=== PATIENT | female | born 1940 | race Hispanic/Latino ===

== ENCOUNTER 2017-10-18 12:22 | Emergency (ER) | payer MEDICARE, OTHER ==
[~2017-10-18] VITALS: Ht 157.5 cm; Wt 67.6 kg
[2017-10-18] MEDS ORDERED: HYDROCODONE/APAP 5MG-325MG TAB PO ONE (13:30)
--- NOTE | 2017-10-18 15:14 | Diagnostic Imaging Report ---
PROCEDURE:X-RAY PELVIS, AP VIEW COMPARISON:None. INDICATIONS:HIP PAIN FINDINGS: There are no fractures, dislocations, lytic or blastic lesions. Degenerative changes of the lower lumbar spine, hip and SI joints. The soft-tissues are unremarkable. CONCLUSION: No acute fracture or dislocation of the pelvis. Degenerative changes. Dictated by: Gera Guo M.D. on 10/18/2017 at 15:15 Electronically approved by: Gera Guo M.D. on 10/18/2017 at 15:15
--- NOTE | 2017-10-18 15:15 | Diagnostic Imaging Report ---
PROCEDURE:HIP RIGHT 2-3 VW (+/- PELVIS) COMPARISON:None. INDICATIONS:RIGHT HIP PAIN FINDINGS: See conclusion. CONCLUSION: No acute fracture or dislocation of the right hip. Degenerative changes. Dictated by: Gera Guo M.D. on 10/18/2017 at 15:17 Electronically approved by: Gera Guo M.D. on 10/18/2017 at 15:17
[2017-10-18 16:41] VITALS: BP 122/66
== END 2017-10-18 16:42 | disposition home or self-care (01) ==
LOC: ER 12:22
DX: M54.5 Low back pain (principal); M25.551 Pain in right hip; W18.39XA Other fall on same level, initial encounter; E11.9 Type 2 diabetes mellitus without complications; E03.9 Hypothyroidism, unspecified
CPT/HCPCS: 72170; 99283

== ENCOUNTER 2019-11-24 09:09 | Inpatient (IN) | payer MEDICARE, OTHER ==
[~2019-11-24] VITALS: Ht 157.5 cm; Wt 64.9 kg
--- OUTSIDE RECORDS SUMMARY | 2019-11-24 09:11 | XMS REPORT | Continuity of Care Document ---
Author Author [facility] Organization [facility] Address [address] [place] [address] Phone Unavailable Care Team Providers Care Mobile Phlebotomist Name Role Phone KIKI AGUERO MD PCP Chinedu MCKENZIE Unavailable Payers Payer Name Policy Type Policy Number Effective Date Expiration Date Rosangela Chatterjee Pos [id number] 2009 00:00:00 [facility] Problems This patient has no known problems. Allergies, Adverse Reactions, Alerts Allergy Name Allergy Type Status Severity Reaction(s) Onset Date Inacti ve Date Treating Clinician Comments Source IODINE Allergy to Substance Active 2017-10-18 00:00:00 [facility] Medications This patient has no known medications. Procedures This patient has no known procedures. Encounters Start Date/Time End Date/Time Encounter Type Admission Type [facility] Care Department Encounter ID Source 2017-10-18 12:22:00 2017-10-18 16:42:00 Departed Emergency Room [address] [facility] [id number] [facility] Results Test Description Test Time Test Comments Results Result Comments Source PELVIS AP 1-2 VIEWS [facility] [address] [place], [place] [address] Patient Name: ROBY SANDOVAL MR #: [id number] : 1940 Age/Sex: 77/F Req #: [id number] Adm Physician: Ordered by: MARITZA BEACH BUSINESS APPLICATIONS SPECIALIST Report #: [id number] Location: ER Room/Bed: Procedure: DX/PELVIS AP 1-2 VIEWS Exam Date: Exam Time: REPORT STATUS: Signed PROCEDURE: X-RAY PELVIS, AP VIEW COMPARISON: None. INDICATIONS: HIP PAIN FINDINGS: There are no fractures, dislocations, lytic or blastic lesions. Degenerative changes of the lower lumbar spine, hip and SI joints. The soft-tissues are unremarkable. CONCLUSION: No acute fracture or dislocation of the pelvis. Degenerative changes. Dictated by: Gera Jarvis M.D. on 10/18/2017 at 15:15 Electronically approved by: Gera Jarvis M.D. on 10/18/2017 at 15:15 Dictated By: GERA JARVIS MD 14 Transcribed By: SOUTH on 10/18/17 151 COPY TO: MARITZA BEACH BUSINESS APPLICATIONS SPECIALIST HIP RIGHT 2-3 VW (+/- PELVIS) [place] [address] Patient Name: ROBY SANDOVAL MR #: [id number] : 1940 Age/Sex: 77/F Req #: [id number] Adm Physician: Ordered by: MARITZA BEACH BUSINESS APPLICATIONS SPECIALIST Report #: [id number] Location: ER Room/Bed: Procedure: DX/HIP RIGHT 2-3 VW (+/- PELVIS) Exam Date: Exam Time: REPORT STATUS: Signed PROCEDURE: HIP RIGHT 2-3 VW (+/- PELVIS) COMPARISON: None. INDICATIONS: RIGHT HIP PAIN FINDINGS: See conclusion. CONCLUSION: No acute fracture or dislocation of the right hip. Degenerative changes. Dictated by: Gera Jarvis M.D. on 10/18/2017 at 15:17 Electronically approved by: Gera Jarvis M.D. on 10/18/2017 at 15:17 Dictated By: GERA JARVIS MD 1517 Transcribed By: SOUTH on 10/18/17 1517 COPY TO: MARITZA BEACH NP
[2019-11-24] MEDS ORDERED: SODIUM CHLORIDE 0.9% 1000ML 1,000 ML IV STA (09:22)
[2019-11-24] MEDS ORDERED: ONDANSETRON HCL INJ 2MG/ML 2ML 2 MG/ML VIAL IV ONE (09:22)
[2019-11-24] MEDS ORDERED: HYDROCODONE/APAP 7.5MG-325MG 1 EA TAB PO ONE (09:30)
[2019-11-24] MEDS ORDERED: PIPER-TAZ 3.375 GM 50 ML IV SCH (09:45)
[2019-11-24] MEDS ORDERED: VANCOMYCIN 1GM/NS 250 ML 250 ML IV ONE (09:45)
[2019-11-24] MEDS ORDERED: RAMIPRIL2.5 MG PO (09:51)
[2019-11-24] MEDS ORDERED: TRIAMCINOLONE A15 G1 (09:51)
[2019-11-24] MEDS ORDERED: PRAVASTATIN SOD10 MG PO (09:51)
[2019-11-24] MEDS ORDERED: LEVOTHYROXINE75 MCG PO (09:51)
[2019-11-24] MEDS ORDERED: METFORMIN HCL750 MG PO (09:51)
[2019-11-24 10:00] LABS: BASOPHILS % 0.3 % (0.0-1.0); EOSINOPHILS # (AUTO) 0.1 (0.0-0.4); EOSINOPHILS % 0.7 % (0.0-6.0); HEMATOCRIT 32.5 % (34.2-44.1); HEMOGLOBIN 10.9 g/dL (12.0-16.0); LYMPHOCYTES # (AUTO) 1.4 (1.0-3.2); LYMPHOCYTES % 19.4 % (18.0-39.1); MEAN CORPUSCULAR HEMOGLOBIN 28.8 pg (28-32); MEAN CORPUSCULAR HGB CONC 33.5 g/dL (31-35); MONOCYTES # (AUTO) 0.7 (0.2-0.8); MONOCYTES % 9.4 % (4.4-11.3); NEUTROPHILS # (AUTO) 5.2 (2.1-6.9); NEUTROPHILS % 69.5 % (38.7-80.0); PLATELET COUNT 248 x10e3/uL (140-360); RED BLOOD COUNT 3.78 x10e6/uL (3.6-5.1); RED CELL DISTRIBUTION WIDTH 13.4 % (11.7-14.4)
[2019-11-24 10:10] LABS: INR 0.86; PROTHROMBIN TIME 12.2 seconds (11.9-14.5)
[2019-11-24 10:11] LABS: PARTIAL THROMBOPLASTIN TIME 34.1 seconds (23.8-35.5)
[2019-11-24 10:16] LABS: CLARITY,URINE CLOUDY (CLEAR); COLOR,URINE YELLOW (YELLOW); KETONES,URINE NEGATIVE (NEGATIVE); LEUKOCYTE ESTERASE ,URINE MODERATE (NEGATIVE); NITRITE,URINE NEGATIVE (NEGATIVE); PROTEIN,URINE DIPSTICK TRACE (NEGATIVE); URINE UROBILINOGEN 0.2 mg/dL (0.2 - 1)
[2019-11-24 10:17] LABS: BILIRUBIN,URINE NEGATIVE (NEGATIVE)
[2019-11-24 10:20] LABS: ALANINE AMINOTRANSFERASE 8 IU/L (0-55); ALBUMIN 3.3 g/dL (3.5-5.0); ALBUMIN/GLOBULIN RATIO 0.9 (0.8-2.0); ALKALINE PHOSPHATASE 72 IU/L (40-150); ANION GAP 15.5 mmol/L (8-16); BLOOD UREA NITROGEN 9 mg/dL (7-26); BUN/CREATININE RATIO 12 (6-25); CALCIUM 9.5 mg/dL (8.4-10.2); CARBON DIOXIDE 21 mmol/L (22-29); CHLORIDE 101 mmol/L (98-107); CREATINE KINASE 16 IU/L (29-168); CREATININE, SERUM 0.73 mg/dL (0.57-1.11); EST GLOMERULAR FILTRATION RATE > 60 ML/MIN (60-); GLUCOSE 114 mg/dL (74-118); POTASSIUM 3.5 mmol/L (3.5-5.1); SODIUM 134 mmol/L (136-145)
[2019-11-24 10:28] LABS: BACTERIA,URINE MODERATE /HPF; EPITHELIAL CELLS,URINE FEW /LPF
[2019-11-24 10:54] LABS: ERYTHROCYTE SEDIMENTATION RATE 82 mm/hr (0-20)
[2019-11-24] MEDS ORDERED: ONDANSETRON HCL INJ 2MG/ML 2ML 2 MG/ML VIAL IV PRN (11:00)
--- NOTE | 2019-11-24 11:07 | Diagnostic Imaging Report ---
WRIST COMPLETE RIGHT - 3 views HISTORY: Pain. Swelling and cellulitis. COMPARISON: None available. FINDINGS: Bones: No acute displaced fracture. Osseous alignment is within normal limits. Mild carpal erosions. Joints: Amorphous calcific densities projected on the joint space may reflect chondrocalcinosis. Soft tissues: Mild soft tissue swelling. 2 mm linear metallic density projected on the lateral aspect of the wrist. IMPRESSION: No acute osseous abnormality. Possible CPPD. Signed by: Dr. Lj Garzon M.D. on 11/24/2019 11:03 AM
--- NOTE | 2019-11-24 11:08 | Emergency Department Note ---
History of Present Illnes History of Present Illness Chief Complaint: General Medicine Complaints History of Present Illness This is a 79 year old female HERE FOR SWELLING AND REDNESS TO RIGHT WRIST, ALSO REPORTS PAIN AT [facility] 3 DAYS AGO THAT PROGRESSED TO PAIN IN PALMAR ASPECT OF HAND RADIATING TO THE ELBOW. DENIES FEVER AT HOME, DENIES HAVING ANY TYPE OF TRAUMA OR INSECT BITE. Historian: Patient Arrival Mode: Car Line Patroller Required: No Onset (how long ago): day(s) (3) Location: RIGHT WRIST Quality: PAIN Radiation: Reports non-radiation Severity: moderate Onset quality: gradual Duration (how long): day(s) (3) Timing of current episode: constant Progression: worsening Chronicity: new Context: Denies recent illness Relieving factors: none Exacerbating factors: none Associated symptoms: Reports denies other symptoms Treatments prior to arrival: none Past Medical/Family History Physician Review I have reviewed the patient's past medical and family history. Any updates have been documented here. Past Medical History Recent Fever: No Clinical Suspicion of Infectio: Yes New/Unexplained Change in Ment: No Past Medical History: Hypertension, Diabetes, Hypothyroidism, Hyperlipedemia Other Medical History: Sciatica Past Surgical History: Cholecysctectomy Social History Smoking Cessation: Never Smoker Counseling Performed: No Alcohol Use: None Any Illegal Drug Use: No TB Exposure/Symptoms: No Physically hurt or threatened: No Other Last Tetanus: utd Any Pre-Existing Lines (PICC,: No Is patient up to date on immun: Yes Last Flu: UTD Last Pneumovax: UTD Review of Systems Review of Systems Constitutional: Reports no symptoms EENTM: Reports no symptoms Cardiovascular: Reports no symptoms Respiratory: Reports no symptoms Gastrointestinal: Reports no symptoms Genitourinary: Reports no symptoms Musculoskeletal: Reports as per HPI Integumentary: Reports no symptoms Neurological: Reports no symptoms Psychological: Reports no symptoms Endocrine: Reports no symptoms Hematological/Lymphatic: Reports no symptoms Physical Exam Related Data Allergies: Coded Allergies: iodine (Verified Allergy, Unknown, 11/24/19) Uncoded Allergies: IODINE (Allergy, Unknown, 10/18/17) Breakout Triage Vital Signs Vital Signs Date Time Temp Pulse Resp B/P (MAP) Pulse Ox O2 Delivery O2 Flow Rate FiO2 11/24/19 09:18 98.6 89 16 146/78 98 Vital signs reviewed: Yes Physical Exam CONSTITUTIONAL Constitutional: Present well-developed, Present well-nourished HENT HENT: Present normocephalic, Present atraumatic, Present oropharynx clear/joey st, Present nose normal HENT L/R: Present left ext ear normal, Present right ext ear normal EYES Eyes: Reports PERRL, Reports conjunctivae normal NECK Neck: Present ROM normal PULMONARY Pulmonary: Present effort normal, Present breath sounds normal CARDIOVASCULAR Cardiovascular: Present regular rhythm, Present heart sounds normal, Present capillary refill normal, Present normal rate GASTROINTESTINAL Abdominal: Present soft, Present nontender, Present bowel sounds normal GENITOURINARY Genitourinary: Present exam deferred SKIN Skin: Present warm, Present dry MUSCULOSKELETAL Musculoskeletal: Present other (RIGHT WRIST WITH MILD SWELLING, ERYTHEMA, INCR WARMTH, DECR ROM DUE TO PAIN, NO PALMAR SWELLING - NO EVID OF FLEXOR TENOSYNIVITIS) NEUROLOGICAL Neurological: Present alert, Present oriented x 3, Present no gross motor or sensory deficits PSYCHOLOGICAL Psychological: Present mood/affect normal, Present judgement normal Results Laboratory Result Diagram: 11/24/19 0910 11/24/19 0910 Laboratory Laboratory Tests Test 11/24/19 09:38 11/24/19 09:10 Urine Color Yellow (YELLOW) Urine Clarity Cloudy (CLEAR) Urine pH 7 (5 - 7) Urine Specific [place] 1.020 (1.010-1.025) Urine Protein Trace (NEGATIVE) Urine Glucose (UA) Negative (NEGATIVE) Urine Ketones Negative (NEGATIVE) Urine Blood Small (NEGATIVE) Urine Nitrite Negative (NEGATIVE) Urine Bilirubin Negative (NEGATIVE) Urine Urobilinogen 0.2 mg/dL (0.2 - 1) Urine Leukocyte Esterase Moderate (NEGATIVE) Urine RBC 6-10 /HPF (0-5) Urine WBC 6-10 /HPF (0-5) Urine Epithelial Cells Few /LPF (NONE) Urine Bacteria Moderate /HPF (NONE) White Blood Count 7.41 x10e3/uL (4.8-10.8) Red Blood Count 3.78 x10e6/uL (3.6-5.1) Hemoglobin 10.9 g/dL (12.0-16.0) Hematocrit 32.5 % (34.2-44.1) Mean Corpuscular Volume 86.0 fL (81-99) Mean Corpuscular Hemoglobin 28.8 pg (28-32) Mean Corpuscular Hemoglobin Concent 33.5 g/dL (31-35) Red Cell Distribution Width 13.4 % (11.7-14.4) Platelet Count 248 x10e3/uL (140-360) Neutrophils (%) (Auto) 69.5 % (38.7-80.0) Lymphocytes (%) (Auto) 19.4 % (18.0-39.1) Monocytes (%) (Auto) 9.4 % (4.4-11.3) Eosinophils (%) (Auto) 0.7 % (0.0-6.0) Basophils (%) (Auto) 0.3 % (0.0-1.0) Neutrophils # (Auto) 5.2 (2.1-6.9) Lymphocytes # (Auto) 1.4 (1.0-3.2) Monocytes # (Auto) 0.7 (0.2-0.8) Eosinophils # (Auto) 0.1 (0.0-0.4) Basophils # (Auto) 0.0 (0.0-0.1) Absolute Immature Granulocyte (auto 0.05 x10e3/uL (0-0.1) Erythrocyte Sedimentation Rate 82 mm/hr (0-20) Prothrombin Time 12.2 seconds (11.9-14.5) Prothromb Time International Ratio 0.86 Activated Partial Thromboplast Time 34.1 seconds (23.8-35.5) Sodium Level 134 mmol/L (136-145) Potassium Level 3.5 mmol/L (3.5-5.1) Chloride Level 101 mmol/L (98-107) Carbon Dioxide Level 21 mmol/L (22-29) Anion Gap 15.5 mmol/L (8-16) Blood Urea Nitrogen 9 mg/dL (7-26) Creatinine 0.73 mg/dL (0.57-1.11) Estimat Glomerular Filtration Rate > 60 ML/MIN (60-) BUN/Creatinine Ratio 12 (6-25) Glucose Level 114 mg/dL (74-118) Uric Acid 3.0 mg/dL (2.6-8.0) Calcium Level 9.5 mg/dL (8.4-10.2) Total Bilirubin 0.7 mg/dL (0.2-1.2) Aspartate Amino Transf (AST/SGOT) 14 IU/L (5-34) Alanine Aminotransferase (ALT/SGPT) 8 IU/L (0-55) Alkaline Phosphatase 72 IU/L (40-150) Creatine Kinase 16 IU/L (29-168) Creatine Kinase MB 0.50 ng/mL (0-5.0) Troponin I 0.013 ng/mL (0-0.300) Total Protein 7.0 g/dL (6.5-8.1) Albumin 3.3 g/dL (3.5-5.0) Globulin 3.7 g/dL (2.3-3.5) Albumin/Globulin Ratio 0.9 (0.8-2.0) Lab results reviewed: Yes Imaging Imaging results reviewed: Yes Diagnostics Tests Diagnostic test(s) reviewed: Yes Assessment & Plan Medical Decision Making MDM RIGHT WRIST PAIN/SWELLING/WARMTH, DENIES TRAUMA - CHECK CBC, CHEM, ESR, CRP, XRAY - DIFF DX INCLUDES CELLULITIS, SEPTIC ARTHRITIS, OSTEOMYELITIS, OCCULT FRACTURE Reassessment Reassessment SPOKE WITH DR Rosangela AGUERO FOR ADMISSION Assessment & Plan Final Impression: (1) Cellulitis of right wrist Depart Disposition: ADMITTED Last Vital Signs Date Time Temp Pulse Resp B/P (MAP) Pulse Ox O2 Delivery O2 Flow Rate FiO2 11/24/19 09:54 77 16 144/67 100 11/24/19 09:18 98.6 Home Meds Reported Medications Metformin Hcl (METFORMIN HCL ER) 750 Mg Tab.er.24h, 750 MG PO BID 11/24/19 Ramipril (RAMIPRIL) 2.5 Mg Capsule, 2.5 MG PO DAILY 11/24/19 Triamcinolone Acet (TRIAMCINOLONE ACETONIDE) 15 Gm Cr 11/24/19 Pravastatin Sodium (PRAVASTATIN SODIUM) 10 Mg Tablet, 10 MG PO DAILY 11/24/19 Levothyroxine Sodium (LEVOTHYROXINE SODIUM) 75 Mcg Tablet, 75 MCG PO DAILY 11/24/19 Medications in the ED Ondansetron HCl 4 mg ONCE ONCE IV Last administered on 11/24/19at 10:24; Admin Dose 4 MG; Start 11/24/19 at 09:22; Stop 11/24/19 at 09:30; Status DC Sodium Chloride 1,000 ml @ 0 mls/hr Q0M STAT IV Last administered on 11/24/19at 10:20; Admin Dose 999 MLS/HR; Start 11/24/19 at 09:22; Stop 11/24/19 at 09:27; Status DC Acetaminophen/ Hydrocodone Bitart 1 ea NOW ONCE PO Last administered on 11/24/19at 10:26; Admin Dose 1 EA; Start 11/24/19 at 09:30; Stop 11/24/19 at 09:31; Status DC Piperacillin Sod/ Tazobactam Sod 50 ml @ 50 mls/hr Q6H IV Last administered on 11/24/19at 10:22; Admin Dose 50 MLS/HR; Start 11/24/19 at 09:45; Stop 12/01/19 at 09:44 Vancomycin HCl 250 ml @ 200 mls/hr NOW ONCE IV Last administered on 11/24/19at 10:45; Admin Dose 200 MLS/HR; Start 11/24/19 at 09:45; Stop 11/24/19 at 10:59 Ondansetron HCl 4 mg Q4H PRN IV NAUSEA AND VOMITING; Start 11/24/19 at 11:00; Stop 12/24/19 at 10:59; Status UNV Sodium Chloride 1,000 ml @ 100 mls/hr Q10H IV ; Start 11/24/19 at 11:00; Stop 11/25/19 at 06:59; Status UNV Acetaminophen/ Hydrocodone Bitart 1 ea Q4H PRN PO MODERATE PAIN (4-6); Start 11/24/19 at 11:00; Stop 12/01/19 at 10:59; Status UNV MARNI GUTIERRES MD Nov 24, 2019 11:08
--- OUTSIDE RECORDS SUMMARY | 2019-11-24 11:41 | XMS REPORT | Continuity of Care Document ---
Author Author [facility] Organization [facility] Address [address] [place] [address] [address] [place] [address] Phone Unavailable Care Team Providers Care Ore Puncher Name Role Phone KIKI AGUERO MD PCP Miranda GUTIERRES Attphys Unavailable Chinedu MCKENZIE Attphys Unavailable KIKI AGUERO Admphys Unavailable Payers Payer Name Policy Type Policy Number Effective Date Expiration Date Rosangela Chatterjee Pos [id number] 2009 00:00:00 [facility] Problems This patient has no known problems. Allergies, Adverse Reactions, Alerts Allergy Name Allergy Type Status Severity Reaction(s) Onset Date Inacti ve Date Treating Clinician Comments Source IODINE Allergy to Substance Active 2017-10-18 00:00:00 [facility] Medications This patient has no known medications. Procedures This patient has no known procedures. Encounters Start Date/Time End Date/Time Encounter Type Admission Type [facility] Care Department Encounter ID Source 2017-10-18 12:22:00 2017-10-18 16:42:00 Departed Emergency Room 1 LAYLA MCKENZIE [facility] [id number] [facility] Results Test Description Test Time Test Comments Results Result Comments Source WRIST COMPLETE RIGHT 2019-11-24 11:01:00 [facility] [address] [place], [place] [address] Patient Name: ROBY SANDOVAL MR #: [id number] : 1940 Age/Sex: 79/F Req #: [id number] Adm Physician: Ordered by: MARNI GUTIERRES MD Report #: [id number] Location: ER Room/Bed: Procedure: [id number] DX/WRIST COMPLETE RIGHT Exam Date: 11/24/19 Exam Time: 1038 REPORT STATUS: Signed WRIST COMPLETE RIGHT - 3 views HISTORY: Pain. Swelling and cellulitis. COMPARISON: None available. FINDINGS: Bones: No acute displaced fracture. Osseous alignment is within normal limits. Mild carpal erosions. Joints: Amorphous calcific densities projected on the joint space may reflect chondrocalcinosis. Soft tissues: Mild soft tissue swelling. 2 mm linear metallic density projected on the lateral aspect of the wrist. IMPRESSION: No acute osseous abnormality. Possible CPPD. Signed by: Dr. Lj Jameson M.D. on 11/24/2019 11:03 AM Dictated By: BEL JAMESON MD, MD 02 Transcribed By: EDGAR on 11/24/191102 COPY TO: MARNI GUTIERRES MD PELVIS AP 1-2 VIEWS [place] [address] Patient Name: ROBY SANDOVAL MR #: [id number] : 1940 Age/Sex: 77/F Req #: [id number] Adm Physician: Ordered by: MARITZA BEACH ORTHOPEDIC RADIOLOGIC TECHNOLOGIST Report #: [id number] Location: ER Room/Bed: Procedure: [id number] DX/PELVIS AP 1-2 VIEWS Exam Date: Exam [...] JARVIS MD 14 Transcribed By: SOUTH on 10/18/171514 COPY TO: MARITZA BEACH NP HIP RIGHT 2-3 VW (+/- PELVIS) [place] [address] Patient Name: ROBY SANDOVAL MR #: [id number] : 1940 Age/Sex: 77/F Req #: [id number] Adm Physician: Ordered by: MRAITZA BEACH ORTHOPEDIC RADIOLOGIC TECHNOLOGIST Report #: [id number] Location: ER Room/Bed: Procedure: [id number] DX/HIP RIGHT 2-3 VW (+/- PELVIS) Exam [...] JARVIS MD 1517 Transcribed By: SOUTH on 10/18/177 COPY TO: MARITZA BEACH NP
--- NOTE | 2019-11-24 12:30 | NUR ---
covid swab obtained and sent to lab
[2019-11-24 15:20] VITALS: BP 121/78
[2019-11-24] MEDS: PIPER-TAZ 3.375 GM 50 ML IV SCH ×2 (16:39→21:38)
[2019-11-24] MEDS: SODIUM CHLORIDE 0.9% 1000ML 1,000 ML IV SCH ×2 (16:39→21:37)
[2019-11-24 16:59] VITALS: BP 128/58
[2019-11-24 20:00] VITALS: BP 138/68
[2019-11-24 21:39] VITALS: BP 138/68
[2019-11-25] VITALS (7 sets, daily range): BP systolic 116–153; BP diastolic 56–71
[2019-11-25] MEDS: PIPER-TAZ 3.375 GM 50 ML IV SCH ×4 (04:30→22:00)
[2019-11-25 05:50] LABS: BASOPHILS % 0.6 % (0.0-1.0); EOSINOPHILS # (AUTO) 0.1 (0.0-0.4); HEMATOCRIT 33.1 % (34.2-44.1); HEMOGLOBIN 10.6 g/dL (12.0-16.0); LYMPHOCYTES # (AUTO) 1.2 (1.0-3.2); LYMPHOCYTES % 23.6 % (18.0-39.1); MEAN CORPUSCULAR HEMOGLOBIN 28.6 pg (28-32); MEAN CORPUSCULAR VOLUME 89.5 fL (81-99); MONOCYTES # (AUTO) 0.4 (0.2-0.8); MONOCYTES % 8.6 % (4.4-11.3); NEUTROPHILS # (AUTO) 3.3 (2.1-6.9); NEUTROPHILS % 64.8 % (38.7-80.0); PLATELET COUNT 196 x10e3/uL (140-360); RED CELL DISTRIBUTION WIDTH 13.4 % (11.7-14.4)
[2019-11-25 06:06] LABS: ALANINE AMINOTRANSFERASE 69 IU/L (0-55); ALBUMIN 2.5 g/dL (3.5-5.0); ALBUMIN/GLOBULIN RATIO 0.8 (0.8-2.0); ALKALINE PHOSPHATASE 69 IU/L (40-150); ANION GAP 12.5 mmol/L (8-16); BLOOD UREA NITROGEN 8 mg/dL (7-26); BUN/CREATININE RATIO 11 (6-25); CALCIUM 8.3 mg/dL (8.4-10.2); CARBON DIOXIDE 20 mmol/L (22-29); CHLORIDE 108 mmol/L (98-107); EST GLOMERULAR FILTRATION RATE > 60 ML/MIN (60-); GLUCOSE 93 mg/dL (74-118); POTASSIUM 3.5 mmol/L (3.5-5.1); SODIUM 137 mmol/L (136-145)
--- NOTE | 2019-11-25 06:55 | NUR ---
Bedside report and walking rounds completed with oncoming nurse. Patient in bed with call light within reach. No issues or concerns noted.
--- NOTE | 2019-11-25 07:00 | NUR ---
Received bedside shift report from off going night nurse. Patient in stable condition, no s/s of distress noted. Bed in lowest position and locked. Call light within reach.
[2019-11-25] MEDS: HYDROCODONE/APAP 5MG-325MG TAB PO PRN (07:36)
[2019-11-25] MEDS: CLINDAMYCIN 300MG 50 ML IV SCH ×2 (14:22→21:00)
[2019-11-25] MEDS ORDERED: SODIUM CHLORIDE 0.9% 50ML 50 ML ONE (16:45)
--- NOTE | 2019-11-25 17:07 | NUR ---
Report given to Dread CORTES. Patient in stable condition, no s/s of distress noted. Patient off the unit @ 1703 via wheelchair.
[2019-11-25] MEDS ORDERED: SODIUM CHLORIDE 0.9% 250ML 250 ML ONE (17:48)
[2019-11-26] VITALS (8 sets, daily range): BP systolic 126–163; BP diastolic 54–73
[2019-11-26] MEDS: HYDROCODONE/APAP 5MG-325MG TAB PO PRN (02:21)
[2019-11-26] MEDS: PIPER-TAZ 3.375 GM 50 ML IV SCH ×4 (05:38→22:16)
[2019-11-26 06:12] LABS: BASOPHILS % 0.5 % (0.0-1.0); EOSINOPHILS # (AUTO) 0.1 (0.0-0.4); EOSINOPHILS % 1.2 % (0.0-6.0); HEMATOCRIT 29.5 % (34.2-44.1); HEMOGLOBIN 9.7 g/dL (12.0-16.0); LYMPHOCYTES # (AUTO) 1.1 (1.0-3.2); LYMPHOCYTES % 17.2 % (18.0-39.1); MEAN CORPUSCULAR HEMOGLOBIN 28.4 pg (28-32); MEAN CORPUSCULAR HGB CONC 32.9 g/dL (31-35); MEAN CORPUSCULAR VOLUME 86.5 fL (81-99); MONOCYTES # (AUTO) 0.5 (0.2-0.8); MONOCYTES % 7.9 % (4.4-11.3); NEUTROPHILS # (AUTO) 4.7 (2.1-6.9); NEUTROPHILS % 72.7 % (38.7-80.0); PLATELET COUNT 218 x10e3/uL (140-360); RED BLOOD COUNT 3.41 x10e6/uL (3.6-5.1); RED CELL DISTRIBUTION WIDTH 13.3 % (11.7-14.4)
[2019-11-26] MEDS: CLINDAMYCIN 300MG 50 ML IV SCH ×3 (06:13→22:00)
[2019-11-26 06:45] LABS: ANION GAP 10.1 mmol/L (8-16); BLOOD UREA NITROGEN 6 mg/dL (7-26); BUN/CREATININE RATIO 9 (6-25); CALCIUM 8.1 mg/dL (8.4-10.2); CARBON DIOXIDE 22 mmol/L (22-29); CHLORIDE 106 mmol/L (98-107); CREATININE, SERUM 0.68 mg/dL (0.57-1.11); EST GLOMERULAR FILTRATION RATE > 60 ML/MIN (60-); GLUCOSE 100 mg/dL (74-118); POTASSIUM 3.1 mmol/L (3.5-5.1); SODIUM 135 mmol/L (136-145)
--- NOTE | 2019-11-26 12:08 | NUR ---
H&P NOTIFIED OF PATIENT OVERNIGHT- TRANSFERRED FROM OTHER SERVICE TO [facility]. cc: wrist pain HPI: 79yoF, PCP , developed right wrist pain and redness. Found to have COVID19 on routine screening; Asymptomatic. PMH: DM2, HTN, HLD, Hypothyroidism PSHx: unknown allergies; see emr FH/SH; no illicits meds; see MAR ROS: no f/c/s/N/V/D/ROJAS/cp/sob/back pain/limb weakness v/s; revd PE tired appearing anicteric ns1s2 mod bs soft nt nd right wrist with mild erythema, mild tenderness, mild warmth skin dry n. affect a&ox3 labs/meds revd A/P: Right wrist cellulitis- IV abx; MRI wrist pending; UTI- IV abx COVID19 positive- isolate; supporive care; AC Hypokalemia- replace/recheck DM2- hab1c/lipids; ADA diet; ssi HTN- cont home med HLD- cont home med Prop; scd DIspo: f/u studies; Bryn Garza MD, PhD.
[2019-11-26 12:38] LABS: CHOL/HDL RATIO 3.6 (3.0-3.6)
--- NOTE | 2019-11-26 13:09 | Diagnostic Imaging Report ---
TECHNIQUE: Magnetic resonance imaging of the RIGHT WRIST was performed WITHOUT injected contrast, on a 1.5 jadyn magnet. HISTORY: Pain COMPARISON: None available. FINDINGS: Bone and bone marrow: No focal or infiltrative bone marrow replacing abnormality. No acute fracture or osteonecrosis. The osseous alignment is within normal limits. Joints: Fluid within the joints is within physiologic limits. Degenerative arthrosis of the radiocarpal joint. Ligaments: Scapholunate: Intact Lunotriquetral: Intact Triangular fibrocartilage complex: Degeneration of the triangle fibrocartilage with chondrocalcinosis. Extrinsic ligaments: Intact Tendons: The flexor and extensor tendons are intact. Carpal tunnel: The median nerve is within normal limits. Other soft tissues: Soft tissue swelling and skin thickening of the wrist. No fluid collection. IMPRESSION: Edema/cellulitis of the wrist. No abscess or osteomyelitis. Signed by: Dr. Franky Perez M.D. on 11/26/2019 1:06 PM
[2019-11-26] MEDS ORDERED: POTASSIUM CHLORIDE 10MEQ EA PO NR (14:45)
[2019-11-26] MEDS: FUROSEMIDE INJ 10 MG/ML 2 ML VIAL IV SCH (16:15)
--- NOTE | 2019-11-26 18:10 | NUR ---
Patient was transferred to room 182 due to positive COVID result
[2019-11-26] MEDS: PRAVASTATIN 20 MG TAB PO SCH (21:00)
[2019-11-26] MEDS: ENOXAPARIN INJ 80 MG/0.8 ML SYR SC SCH (21:00)
[2019-11-27] VITALS: BP 151/63
[2019-11-27 04:00] VITALS: BP 134/76
[2019-11-27] MEDS: PIPER-TAZ 3.375 GM 50 ML IV SCH ×2 (04:00→08:39)
[2019-11-27] MEDS: CLINDAMYCIN 300MG 50 ML IV SCH (05:13)
[2019-11-27 05:29] LABS: ANION GAP 15.7 mmol/L (8-16); BLOOD UREA NITROGEN 6 mg/dL (7-26); BUN/CREATININE RATIO 8 (6-25); CALCIUM 8.4 mg/dL (8.4-10.2); CARBON DIOXIDE 24 mmol/L (22-29); CHLORIDE 100 mmol/L (98-107); CREATININE, SERUM 0.72 mg/dL (0.57-1.11); EST GLOMERULAR FILTRATION RATE > 60 ML/MIN (60-); GLUCOSE 95 mg/dL (74-118); SODIUM 137 mmol/L (136-145)
--- NOTE | 2019-11-27 05:33 | NUR ---
LAB CRITICAL potassium 2.7 . notified
[2019-11-27 05:34] LABS: POTASSIUM 2.7 mmol/L (3.5-5.1)
[2019-11-27] MEDS: LEVOTHYROXINE SODIUM 75 MCG TAB PO SCH (06:00)
[2019-11-27 06:15] LABS: BASOPHILS % 0.3 % (0.0-1.0); EOSINOPHILS # (AUTO) 0.1 (0.0-0.4); EOSINOPHILS % 1.3 % (0.0-6.0); HEMATOCRIT 32.9 % (34.2-44.1); LYMPHOCYTES # (AUTO) 1.5 (1.0-3.2); LYMPHOCYTES % 23.5 % (18.0-39.1); MEAN CORPUSCULAR HEMOGLOBIN 29.1 pg (28-32); MEAN CORPUSCULAR HGB CONC 33.4 g/dL (31-35); MONOCYTES # (AUTO) 0.6 (0.2-0.8); MONOCYTES % 9.3 % (4.4-11.3); NEUTROPHILS # (AUTO) 4.1 (2.1-6.9); NEUTROPHILS % 65.1 % (38.7-80.0); PLATELET COUNT 235 x10e3/uL (140-360); RED BLOOD COUNT 3.78 x10e6/uL (3.6-5.1); RED CELL DISTRIBUTION WIDTH 13.2 % (11.7-14.4)
[2019-11-27] MEDS ORDERED: POTASSIUM CHLORIDE 10MEQ EA PO ONE ×2 (07:45→09:45)
[2019-11-27 08:00] VITALS: BP 153/59
[2019-11-27] MEDS ORDERED: SODIUM CHLORIDE 0.9% 250ML 250 ML ONE (08:17)
[2019-11-27] MEDS: FUROSEMIDE INJ 10 MG/ML 2 ML VIAL IV SCH (08:38)
[2019-11-27 08:39] VITALS: BP 153/59
[2019-11-27] MEDS: RAMIPRIL 2.5 MG CAP PO SCH (08:39)
[2019-11-27] MEDS: ENOXAPARIN INJ 80 MG/0.8 ML SYR SC SCH (08:39)
[2019-11-27] MEDS ORDERED: NON-FORMULARY MEDICATION (Pravastatin Sodium 10 MG) PO SCH (09:00)
--- NOTE | 2019-11-27 10:33 | Consultation ---
DATE OF CONSULTATION: Pulmonary Critical Care consultation CHIEF COMPLAINT: Positive COVID test. HISTORY OF PRESENT ILLNESS: The patient is a 79-year-old woman. She came to the hospital complaining of wrist pain and swelling. She had a routine COVID test done that was positive. She denies any cough or dyspnea. She is not having any trouble breathing. She has no fevers. She has no nausea or vomiting. PAST MEDICAL HISTORY: 1. Diabetes that does not require insulin. 2. Hypertension. 3. Thyroid disease. 4. No prior heart disease. 5. No prior respiratory problems. PAST SURGICAL HISTORY: Noncontributory. SOCIAL HISTORY: The patient has never been a smoker or drinker. ALLERGIES: THE PATIENT IS ALLERGIC TO IODINE. FAMILY HISTORY: Noncontributory. REVIEW OF SYSTEMS: The patient is afebrile. She has no headache. She has no neck pain. She has no cough or dyspnea. She has no chest pain. She does have some pain and swelling in the right wrist. There is no abdominal pain. She has no nausea or vomiting. She has no leg edema. PHYSICAL EXAMINATION: VITAL SIGNS: The patient is afebrile. The blood pressure is 153/59, saturation is 100% and the pulse is 68. Respiratory rate is 14 and she is afebrile. HEENT: Shows no facial swelling or erythema. CARDIAC: Reveals regular rate rhythm with normal S1, S2. LUNGS: Auscultation of lungs reveals clear breath sounds bilaterally. There is no wheezing. ABDOMEN: Soft and nontender. There is no rebound or guarding. EXTREMITIES: Shows some changes in the hand consistent with degenerative arthritis. She has some swelling and pain in the wrist. ABDOMEN: Soft and nontender. There is no rebound or guarding. There is no leg edema. She has no neurological symptoms or abnormalities. LABORATORY DATA: White blood cell count is 6.2 and hemoglobin is 11. Platelet count is 235. The potassium is 2.7 and the BUN to creatinine ratio is 6 to 0.72. Urinalysis is normal. RADIOGRAPHIC DATA: MRI of the wrist shows edema and possible cellulitis of the wrist. There is no abscess or osteomyelitis. IMPRESSION: 1. COVID-19 infection with no respiratory symptoms or fever. 2. Cellulitis of the wrist. 3. Diabetes. 4. Hypertension. 5. Hypokalemia. PLAN: 1. Replete potassium. 2. Treat wrist cellulitis with antibiotics. 3. The patient is okay for discharge with her positive COVID test. She must remain in self-quarantine until she is symptom-free for at least seven days. She should also follow up with her PCP in 2 weeks for re-evaluation and repeat testing. 4. The patient develops fevers, trouble breathing, or worsening symptoms, she should return to the emergency department or call her primary physician. MD FERNANDO Grayson/MODL /[phone]
--- NOTE | 2019-11-27 10:39 | NUR ---
IM- progress note O/N see below ROS: no f/c/s/N/V/D/ROJAS/cp/sob/back pain/limb weakness v/s; revd PE tired appearing anicteric ns1s2 mod bs soft nt nd right wrist with mild erythema, mild tenderness, mild warmth skin dry n. affect a&ox3 labs/meds revd A/P: Right wrist cellulitis- IV abx; MRI wrist pending; UTI- IV abx COVID19 positive- isolate; supporive care; AC Hypokalemia- replace/recheck DM2- hab1c/lipids; ADA diet; ssi HTN- cont home med HLD- cont home med Prop; scd DIspo: f/u studies; 6-17 Hypokalemia- replace/recheck; E.coli UTI- iv abx; Bryn Garza MD, PhD.
[2019-11-27 11:22] VITALS: BP 138/52
--- NOTE | 2019-11-27 13:44 | NUR ---
RECEIVED CALL FROM JAIRO IN THE [facility] TO CALL DR. ELLIOTT REGARDING DC FOR THIS PT. CALL TO DR. ELLIOTT. STATES HE HAS SPOKE TO [facility] AND THE PT WILL NEED 1 MORE DAY OF IV ABX. NOTIFIED SEBASTIAN GILL.
[2019-11-27] MEDS ORDERED: POTASSIUM CHLORIDE 20 MEQ TAB CR PO ONE (14:00)
[2019-11-27] MEDS ORDERED: VANCOMYCIN 1GM/NS 250 ML 250 ML IV SCH (15:00)
[2019-11-27 16:00] VITALS: BP 118/77
[2019-11-27] MEDS ORDERED: CEFTRIAXONE SOD 1 GM/NS 50 ML 50 ML IV SCH (16:00)
[2019-11-27] MEDS: VANCOMYCIN 1GM/NS 250 ML 250 ML IV SCH (17:28)
--- NOTE | 2019-11-27 20:52 | Consultation ---
DATE OF CONSULTATION: HISTORY OF PRESENT ILLNESS: This patient who is a 79-year-old female, who comes in with redness and swelling of her right hand. Denies a history of trauma. She has no other complaint. There is no fever, no chills. No shortness of breath or cough. She was admitted with cellulitis. She is on IV antibiotic. However, her COVID-19 came back positive, so I was asked to see her and I saw her. REVIEW OF SYSTEMS: HEENT: Negative. PULMONARY: Negative. CARDIAC: Negative. : Negative. PAST MEDICAL HISTORY: Diabetes mellitus, hypertension, and hypothyroidism. PAST SURGICAL HISTORY: Denies. ALLERGIES: NKA. SOCIAL HISTORY: There is no smoking, drug abuse or alcohol abuse. FAMILY HISTORY: Unremarkable. PHYSICAL EXAMINATION: GENERAL: She is currently alert, oriented, does not seem in acute distress. VITAL SIGNS: Stable, afebrile. HEENT: She is not icteric. NECK: Supple. CHEST: Clear. COR: S1 and S2. No S3, S4, or murmurs. ABDOMEN: Soft. CURRENT MEDICATIONS: She is currently on Zosyn for hypothyroidism. The patient had an MRI of the wrist, which shows cellulitis. Her urine shows E coli, which was pretty much sensitive. IMPRESSION: 1. Cellulitis of the hand to follow. 2. Upper respiratory infection of coronavirus disease-19. Would recommend just to treat her cellulitis, we will give her vancomycin. Treat her urinary tract infection, we will give her Rocephin, can change to oral Keflex once she is clinically better, hopefully tomorrow. The treatment needed for the coronavirus disease-19, just to stay in isolation to stay in the for 2 weeks. Discussed with the patient, probably her also has it. But he is asymptomatic so far, she is asymptomatic so far. MD VALARIE Moyer/RORY /[id number]
[2019-11-27] MEDS: PRAVASTATIN 20 MG TAB PO SCH (21:00)
[2019-11-28] MEDS: VANCOMYCIN 1GM/NS 250 ML 250 ML IV SCH (05:00)
[2019-11-28 05:44] LABS: BASOPHILS % 0.5 % (0.0-1.0); EOSINOPHILS % 0.5 % (0.0-6.0); HEMATOCRIT 29.2 % (34.2-44.1); HEMOGLOBIN 9.9 g/dL (12.0-16.0); LYMPHOCYTES # (AUTO) 1.2 (1.0-3.2); LYMPHOCYTES % 14.2 % (18.0-39.1); MEAN CORPUSCULAR HEMOGLOBIN 28.9 pg (28-32); MEAN CORPUSCULAR HGB CONC 33.9 g/dL (31-35); MEAN CORPUSCULAR VOLUME 85.1 fL (81-99); MONOCYTES # (AUTO) 0.7 (0.2-0.8); MONOCYTES % 7.9 % (4.4-11.3); NEUTROPHILS # (AUTO) 6.6 (2.1-6.9); NEUTROPHILS % 76.3 % (38.7-80.0); PLATELET COUNT 239 x10e3/uL (140-360); RED BLOOD COUNT 3.43 x10e6/uL (3.6-5.1); RED CELL DISTRIBUTION WIDTH 13.3 % (11.7-14.4)
[2019-11-28] MEDS: LEVOTHYROXINE SODIUM 75 MCG TAB PO SCH (06:00)
[2019-11-28 06:04] LABS: ANION GAP 15.6 mmol/L (8-16); BLOOD UREA NITROGEN 8 mg/dL (7-26); BUN/CREATININE RATIO 12 (6-25); CALCIUM 8.2 mg/dL (8.4-10.2); CARBON DIOXIDE 22 mmol/L (22-29); CHLORIDE 100 mmol/L (98-107); CREATININE, SERUM 0.65 mg/dL (0.57-1.11); EST GLOMERULAR FILTRATION RATE > 60 ML/MIN (60-); GLUCOSE 109 mg/dL (74-118); POTASSIUM 3.6 mmol/L (3.5-5.1); SODIUM 134 mmol/L (136-145)
--- NOTE | 2019-11-28 07:53 | NUR ---
Received report from off going night nurse. Patient in stable condition, no s/s of distress noted. Bed in lowest position and locked. Call light within reach.
[2019-11-28] MEDS: FUROSEMIDE INJ 10 MG/ML 2 ML VIAL IV SCH (08:09)
[2019-11-28] MEDS: RAMIPRIL 2.5 MG CAP PO SCH (08:11)
[2019-11-28 08:27] VITALS: BP 136/63
--- NOTE | 2019-11-28 09:03 | NUR ---
SANDRA called pt's room and spoke to pt regarding home health. Pt states she has never used home health previously. Gave choice for [facility]. Discussed IMM with pt. She verbalized understanding. Pt also inquired about a walker. Discussed option of receiving walker from hospital. Pt states she will have her pick one up from the store. Signed copies of choice letter and IMM placed in chart. Copies given to nurse to give to pt. Home health information printed with instructions for pt to call them if she does not hear from them within 24 hrs of discharge. Information given to nurse to give to pt. Home health referral faxed to [facility] at [phone] / . Informed of discharge for today. Addendum: 11/28/19 at 0923 by Shara Yang CM Called and spoke with Izabella with intake at [facility]. States she has received referral and will start working on it now. Informed her that pt will be discharging today.
[2019-11-28] MEDS: HYDROCODONE/APAP 5MG-325MG TAB PO PRN (09:25)
--- NOTE | 2019-11-28 09:38 | NUR ---
D/C summary Principal Dx: Right wrist cellulitis- IV abx; MRI wrist pending; UTI- IV abx COVID19 positive- isolate; supporive care; AC Hypokalemia- replace/recheck Secondary Dx: DM2- hab1c/lipids; ADA diet; ssi HTN- cont home med HLD- cont home med Prop; scd DIspo: f/u studies; 6-17 Hypokalemia- replace/recheck; E.coli UTI- iv abx; d/c home stable d/c>35mins f/u PCP 2-4 days Bryn Garza MD, PhD.
[2019-11-28] MEDS ORDERED: CLINDAMYCIN HC150 MG PO (10:06)
[2019-11-28] MEDS ORDERED: KEFLEX500 MG PO (10:07)
[2019-11-28] MEDS ORDERED: ONDANSETRON HCL 4 MG ORAL DISINTEGRATING TAB PO PRN (10:15)
--- NOTE | 2019-11-28 10:18 | NUR ---
AL WITH SAY DO NOT DISCHARGE THE PATIENT WITH CLINDAMYCIN THAT SHE DOSE NOT NEED IT.
--- NOTE | 2019-11-28 11:19 | Progress Note ---
DATE: SUBJECTIVE: The patient is seen and evaluated. Available labs and notes reviewed. Discussed with Dr. Handy. Discussed with the nurse. Discussed with the patient. REVIEW OF SYSTEMS: Right upper extremity cellulitis almost resolved and feels better. Swelling has gone down. Complaining of peripheral neuropathy of both feet, which is not new. Otherwise, no nausea, vomiting, fever, chills, headache, rash not much of cough. No significant shortness of breath and patient is on room air. PHYSICAL EXAMINATION: VITAL SIGNS: Temperature 99.1, pulse is 94, respiration 18, blood pressure 136/63. GENERAL: Alert and oriented on room air. No acute distress. CV: S1, S2. CHEST: Decreased breath sounds. Equal expansion. No acute distress. ABDOMEN: Soft, positive bowel sounds. Nontender. HEENT: Moist. No pallor. No JVD. EXTREMITIES: No edema of lower extremities or upper extremities. No obvious sign of active cellulitis. MEDICATIONS: The patient is on vancomycin IV and Rocephin. LABORATORY STUDIES: White count 8.66, hemoglobin 9.9, platelets 239. Sodium 134, potassium 3.6, creatinine 0.65. No new LFT. Coronavirus PCR 11/24/2019 detected. MICROBIOLOGY: Blood culture negative 72 hours. Urine culture E coli, pansensitive. RADIOLOGY STUDIES: MRI of the right wrist showed edema/cellulitis of the right wrist. No abscess or osteomyelitis, however, on physical exam today there is no significant edema or erythema on the right upper extremity. ASSESSMENT AND PLAN: 1. Cellulitis of the right hand with significant improvement. 2. Upper respiratory infection with coronavirus disease-19. 3. Urinary tract infection, improved. 4. As far as coronavirus, there is no shortness of breath and patient is on room air. 5. DC planning in progress with Keflex. Also, there is a prescription for Cleocin from attending physician. The patient to stay in quarantine for next couple of weeks. Discussed with Dr. Handy. Please refer to chart for more information. Dictated by Javy Oliveira PA-C (Al) Gretchen Handy MD /MODL /[id number]
--- NOTE | 2019-11-28 11:23 | NUR ---
PATIENT DISCHARGED HOME WITH HOME HEALTH.- PATIENT OFF THE UNIT @ 1123 VIA WHEELCHAIR ACCOMPANIED BY THE PCT TO THE LOBBY. PATIENT IN STABLE CONDITION, NO S/SOF DISTRESS NOTED. NO PAIN VOICED. IV ACCESS REMOVED WITH TIP INTACT. ALL PERSONAL ITEMS TAKEN WITH THE PATIENT. DISCHARGE TEACHING AND INSTRUCTION GIVEN TO THE PATIENT.PATIENT VERBALIZED UNDERSTANDING. DISCHARGE PAPERWORK AND PRESCRIPTIONS GIVEN TO THE PATIENT ALONG WITH HOME HEALTH PAPERWORK WITH THE PHONE NUMBER. .
== END 2019-11-28 11:50 | disposition home or self-care (01) | DRG 602 ==
LOC: ER 09:09 → ERHOLD 10:57 → MED/SURG 15:35 → MED/SURG2 11-25 17:12 → OBSVTOIN 11-26 15:45 → IMCU 11-26 17:58
PROVIDERS: ADMIT Internal Medicine; ATTEND Internal Medicine
PROC: 8E0ZXY6 Isolation (ICD-10-PCS; principal; 2019-11-26)
DX: L03.113 Cellulitis of right upper limb (principal); U07.1 COVID-19; N39.0 Urinary tract infection, site not specified; I10 Essential (primary) hypertension; E11.9 Type 2 diabetes mellitus without complications; E03.9 Hypothyroidism, unspecified; E78.5 Hyperlipidemia, unspecified; Z90.49 Acquired absence of other specified parts of digestive tract; Z91.041 Radiographic dye allergy status; E87.6 Hypokalemia; B96.20 Unspecified Escherichia coli [E. coli] as the cause of diseases classified elsewhere; Z79.84 Long term (current) use of oral hypoglycemic drugs
CPT/HCPCS: 36415; 80048; 80053; 80061; 81001; 82550; 82553; 82948; 83036; 84132; 84484; 84550; 85025; 85610; 85651; 85730; 86140; 87040; 87086; 87186; 87635; 99284; G0378; J0696; J1650; J1940; J2405; J2543; J3370; J7030; J7050